=== PATIENT | male | born 1965 | race Caucasian/White ===

== ENCOUNTER 2023-06-06 11:10 | Emergency (ER) | payer MEDICARE ==
[~2023-06-06] VITALS: Ht 182.9 cm; Wt 133.8 kg
[2023-06-06] MEDS ORDERED: COZAAR25 MG PO (11:27)
[2023-06-06] MEDS ORDERED: VAZALORE81 MG PO (11:27)
[2023-06-06] MEDS ORDERED: GABAPENTIN100 MG PO ×2 (11:28)
[2023-06-06] MEDS ORDERED: LIPITOR10 MG PO ×2 (11:28)
--- OUTSIDE RECORDS SUMMARY | 2023-06-06 12:14 | XMS ---
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 E.Hanna VISIT COUNT (12 MO.) [facility] TOTAL 2 NOTE: Visits indicate total known visits. ED/UCC VISIT TRACKING (12 MO.) [facility] COMPLAINT: - BLOODY NOSE 06/02/2023 21:28 [facility] ANGEL [place] TYPE: Emergency DIAGNOSES: - Epistaxis - Epistaxis INPATIENT VISIT TRACKING (12 MO.) No inpatient visits to display in this time frame [id number]
[2023-06-06 13:31] VITALS: BP 178/109
[2023-06-06] MEDS ORDERED: ATORVASTATIN CA20 MG PO (20:44)
[2023-06-06] MEDS ORDERED: GABAPENTIN300 MG PO (20:45)
== END 2023-06-06 13:33 | disposition home or self-care (01) ==
LOC: ED 11:10
DX: R04.0 Epistaxis (principal); I10 Essential (primary) hypertension; Z88.0 Allergy status to penicillin; Z79.899 Other long term (current) drug therapy; Z79.82 Long term (current) use of aspirin

== ENCOUNTER 2023-06-06 19:19 | Emergency (ER) | payer MEDICARE ==
[~2023-06-06] VITALS: Ht 182.9 cm; Wt 139.5 kg
[~2023-06-06 19:19] MED LIST: COZAAR25 MG PO; GABAPENTIN100 MG PO; LIPITOR10 MG PO; VAZALORE81 MG PO
--- OUTSIDE RECORDS SUMMARY | 2023-06-06 19:21 | XMS ---
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 E.Hanna VISIT COUNT (12 MO.) [address] [facility] TOTAL 3 NOTE: Visits indicate total known visits. ED/C VISIT TRACKING (12 MO.) 06/06/2023 19:19 [facility] [place] TYPE: Emergency COMPLAINT: - NOSE BLEED 06/06/2023 11:11 [facility] [place] TYPE: Emergency COMPLAINT: - BLOODY NOSE 06/02/2023 21:[address] [place] [facility] DIAGNOSES: - Epistaxis - Epistaxis INPATIENT VISIT TRACKING (12 MO.) No inpatient visits to display in this time frame [id number]
[2023-06-06] MEDS ORDERED: ATORVASTATIN CA20 MG PO (20:44)
[2023-06-06] MEDS ORDERED: GABAPENTIN300 MG PO (20:45)
[2023-06-06 21:23] LABS: INR 1.36 (0.80-1.30); PROTIME 16.2 Sec (11.2-14.2)
[2023-06-06 21:50] LABS: BASOPHILS 0.7 % (0-2); EOSINOPHILS 4.7 % (0-6); HEMATOCRIT 37.6 % (35.0-50.0); HEMOGLOBIN 12.3 g/dL (12.0-18.0); LYMPHOCYTES 33.9 % (24-44); MCH 30.4 (27-36); MCHC 32.9 g/dl (30-36); MCV 92.5 fl (81-99); MONOCYTES 9.9 % (0-12); NEUTROPHILS 50.8 % (39-80); PLATELET COUNT 307 K/uL (140-440); RBC 4.06 M/ul (4.3-5.7); RDW 14.2 (10.5-15.0)
[2023-06-06 22:13] VITALS: BP 176/100
== END 2023-06-06 22:14 | disposition home or self-care (01) ==
LOC: ED 19:19
PROVIDERS: Family Medicine
DX: R04.0 Epistaxis (principal); R79.1 Abnormal coagulation profile; I10 Essential (primary) hypertension; Z79.82 Long term (current) use of aspirin; Z88.0 Allergy status to penicillin; Z79.899 Other long term (current) drug therapy
CPT/HCPCS: 36415; 85025; 85610